=== PATIENT | male | born 1995 | race Caucasian/White ===

== ENCOUNTER 2022-08-09 18:04 | Emergency (ER) | payer SELFPAY ==
--- NOTE | 2022-08-09 18:55 | XRAY Report ---
PROCEDURE: Chest 1 View X-Ray INDICATIONS: Chest Pain TECHNIQUE: One view of the chest was acquired. COMPARISON: None. FINDINGS: Surgical changes and devices: None. Lungs and pleura: No pleural effusions or pneumothorax. Lungs are clear. Mediastinum: Mediastinal contours appear normal. Heart size is normal. Bones and chest wall: No suspicious bony lesions. Overlying soft tissues appear unremarkable. IMPRESSION: Portable chest within normal limits for age. Reviewed by: Chas Hyatt MD on 08/09/2022 5:54 PM AKJULIANE Approved by: Chas Hyatt MD on 08/09/2022 5:54 PM WAJULIANE Station ID: [id number]
[2022-08-09 18:56] LABS: BASOPHILS % (AUTO) 0.4 %; EOSINOPHILS # (AUTO) 0.1 10^3/uL (0.0-0.7); EOSINOPHILS % (AUTO) 1.5 %; HCT - HEMATOCRIT 43.2 % (42.0-52.0); HGB - HEMOGLOBIN 13.9 g/dL (14.0-18.0); LYMPHOCYTES # (AUTO) 2.7 10^3/uL (1.5-3.5); LYMPHOCYTES % (AUTO) 39.7 %; MEAN CORPUSCULAR HEMOGLOBIN 29.4 pg (27.0-31.0); MEAN CORPUSCULAR HGB CONC 32.2 g/dL (32.0-36.0); MEAN CORPUSCULAR VOLUME 91.5 fL (80.0-94.0); MEAN PLATELET VOLUME 8.9 fL (7.4-11.4); MONOCYTES # (AUTO) 0.7 10^3/uL (0.0-1.0); NEUTROPHILS # (AUTO) 3.2 10^3/uL (1.5-6.6); NEUTROPHILS % (AUTO) 48.1 %; PLT - PLATELET COUNT 301 10^3/uL (130-450); RED BLOOD COUNT 4.72 10^6/uL (4.70-6.10); RED CELL DISTRIBUTION WIDTH 12.1 % (12.0-15.0); WHITE BLOOD COUNT 6.7 x10^3/uL (4.8-10.8)
[2022-08-09 19:10] LABS: ALBUMIN 4.5 g/dL (3.2-5.5); ALBUMIN/GLOBULIN RATIO 1.6 (1.0-2.2); BILIRUBIN,TOTAL 0.7 mg/dL (0.2-1.0); POTASSIUM 3.9 mmol/L (3.5-5.0); TOTAL PROTEIN 7.4 g/dL (6.7-8.2)
[2022-08-09] MEDS ORDERED: METOPROLOL TARTRATE 50 MG TABLET PO STA (19:54)
--- NOTE | 2022-08-09 19:59 | ED Physician Documentation ---
History of Present Illness - Stated complaint Stated Complaint: IRREGULAR HEARTBEAT - Chief complaint Chief Complaint: Cardiac - History obtained from History obtained from: Patient - History of Present Illness Timing: Today Pain level max: 0 Pain level now: 0 - Additonal information Additional information: 27-year-old male presents to the emergency department stating that his heart has "felt funny" for several years but seems to be becoming more frequent. He states he is unsure how to describe it. Does not feel like it is skipping a beat. Does not feel like it races. No chest pain. No shortness of breath. No fevers. No chills. Denies any drug use. No caffeine or energy drinks. He states it is worse when lying on the right side. Review of Systems Constitutional: denies: Fever, Chills GI: denies: Vomiting, Diarrhea Skin: denies: Rash Musculoskeletal: denies: Neck pain, Back pain Neurologic: denies: Headache PD PAST MEDICAL HISTORY - Past Medical History Past Medical History: No - Past Surgical History Past Surgical History: No - Present Medications Home Medications: Ambulatory Orders Medication Instructions Recorded Confirmed Metoprolol Succinate [Toprol Xl] 25 mg PO DAILY #30 tablet 08/09/22 - Allergies Allergies/Adverse Reactions: Allergies Allergy/AdvReac Type Severity Reaction Status Date / Time No Known Drug Allergies Allergy Verified 08/09/22 18:25 PD ED PE NORMAL - Vitals Vital signs reviewed: Yes - General General: Alert and oriented X 3, No acute distress - HEENT HEENT: PERRL, Moist mucous membranes - Neck Neck: Supple, no meningeal sign - Cardiac Cardiac: RRR, Strong equal pulses - Respiratory Respiratory: No respiratory distress, Clear bilaterally - Abdomen Abdomen: Soft, Non tender, Non distended - Derm Derm: Warm and dry - Extremities Extremities: No edema, No calf tenderness / cord - Neuro Neuro: Alert and oriented X 3 - Psych Psych: Normal mood, Normal affect Results - Vitals Vitals: Vital Signs - 24 hr 08/09/22 08/09/22 08/09/22 18:23 18:58 19:29 Temperature 37.1 C Heart Rate 70 82 72 Respiratory 16 18 18 Rate Blood Pressure 115/65 131/79 H 120/77 O2 Saturation 98 100 99 08/09/22 08/09/22 20:06 20:33 Temperature Heart Rate 73 70 Respiratory 18 Rate Blood Pressure 125/69 125/69 O2 Saturation 100 Oxygen O2 Source Room air - EKG (time done) 1828 EKG releavant findings:: EKG personally interpreted by author of this note. Relevant findings are: Rate: Rate (enter#) (80) Rhythm: NSR [place]: Normal Intervals: RBBB Ischemia: Normal ST segments - Labs Labs: Laboratory Tests 08/09/22 08/09/22 08/09/22 18:51 18:51 18:51 WBC 6.7 RBC 4.72 Hgb 13.9 L Hct 43.2 MCV 91.5 MCH 29.4 MCHC 32.2 RDW 12.1 Plt Count 301 MPV 8.9 Neut # (Auto) 3.2 Lymph # (Auto) 2.7 [place] # (Auto) 0.7 Eos # (Auto) 0.1 Baso # (Auto) 0.0 Absolute Nucleated RBC 0.00 Nucleated RBC % 0.0 Sodium 140 Potassium 3.9 Chloride 103 Carbon Dioxide 28 Anion Gap 9.0 BUN 20 Creatinine 1.0 Estimated GFR (MDRD) 90 Glucose 91 Calcium 9.0 Total Bilirubin 0.7 AST 19 ALT 15 Alkaline Phosphatase 37 L Troponin I High Sens 2.4 Total Protein 7.4 Albumin 4.5 Globulin 2.9 Albumin/Globulin Ratio 1.6 Lipase 33 - Rads (name of study) cxr Relevant Findings:: Final report received, See rad report PD Medical Decision Making - ED course Complexity details: reviewed results, re-evaluated patient, considered differential (No ST elevation [place], no aortic dissection, no PE, no tension pneumothorax, no aortic aneurysm), d/w patient ED course: 27-year-old male with short episodes of PACs. He feels palpitations when this occurs on telemetry monitoring. No acute findings on CBC, chemistry, EKG or high-sensitivity troponin. Given a small dose of metoprolol here and symptoms resolved. We will have him follow-up with his PCP for a Zio patch/Holter monitor and echocardiogram. We will start him on a low-dose metoprolol. Patient is well-appearing, nontoxic. Afebrile. Otherwise asymptomatic here. Patient counseled regarding signs and symptoms for which I believe and urgent re-evaluation would be necessary. Patient with good understanding of and agreement to plan and is comfortable going home at this time This document was made in part using voice recognition software. While efforts are made to proofread this document, sound alike and grammatical errors may occur. Departure - Departure Disposition: 01 Home, Self Care Clinical Impression: Premature atrial contractions, Palpitations Condition: Good Instructions: ED Palpitations Follow-Up: [facility]Provider [facility]] [facility] [Provider Group] [facility] [Provider Group] Prescriptions: Metoprolol Succinate [Toprol Xl] 25 mg PO DAILY #30 tablet Comments: Please follow-up with the primary care clinic or walk-in clinic. You will likely need a Zio patch or Holter monitor. You also benefit from a cardiac echo. We will start you on a low-dose of metoprolol. This should help to co ntrol the palpitations you are feeling. You appear to be having premature atrial contractions on the gambling monitor tonight. Please return if you worsen [facility] Discharge Date/Time: 08/09/22 20:41
[2022-08-09 20:09] VITALS: BP 125/69
== END 2022-08-09 20:41 | disposition home or self-care (01) ==
LOC: ED 18:04
DX: I49.1 Atrial premature depolarization (principal); R00.2 Palpitations
CPT/HCPCS: 36415; 71045; 80053; 83690; 84484; 85025; 93005; 99284; A9270

== ENCOUNTER 2022-09-04 11:58 | Outpatient (CLI) | payer OTHER | END 2022-09-04 11:59 | disposition home or self-care (01) | LOC: MAC.MOP 11:58 | PROVIDERS: ATTEND Physician Assistant | DX: R06.09 Other forms of dyspnea (principal); R00.2 Palpitations | CPT/HCPCS: 93242 ==

== ENCOUNTER 2022-09-23 10:30 | Outpatient (CLI) | payer OTHER | END 2022-09-23 23:59 | disposition home or self-care (01) | LOC: MAC.INF 10:30 | PROVIDERS: ATTEND Physician Assistant | DX: I47.1 Supraventricular tachycardia (principal); I49.1 Atrial premature depolarization; I49.3 Ventricular premature depolarization | CPT/HCPCS: 93244 ==

== ENCOUNTER 2022-10-14 06:54 | Outpatient (CLI) | payer OTHER | END 2022-10-14 06:55 | disposition home or self-care (01) | LOC: DI 06:54 | PROVIDERS: ATTEND Physician Assistant | DX: I34.0 Nonrheumatic mitral (valve) insufficiency (principal); R06.09 Other forms of dyspnea; R00.2 Palpitations | CPT/HCPCS: 93306 ==

== ENCOUNTER 2023-02-02 18:12 | Emergency (ER) | payer MEDICAID, OTHER ==
[2023-02-02 18:32] VITALS: O2SAT 100
[2023-02-02 18:45] LABS: BASOPHILS % (AUTO) 0.7 %; EOSINOPHILS # (AUTO) 0.1 10^3/uL (0.0-0.7); EOSINOPHILS % (AUTO) 1.6 %; HCT - HEMATOCRIT 45.9 % (42.0-52.0); LYMPHOCYTES # (AUTO) 2.6 10^3/uL (1.5-3.5); MEAN CORPUSCULAR HEMOGLOBIN 29.4 pg (27.0-31.0); MEAN CORPUSCULAR HGB CONC 32.7 g/dL (32.0-36.0); MEAN CORPUSCULAR VOLUME 89.8 fL (80.0-94.0); MEAN PLATELET VOLUME 8.7 fL (7.4-11.4); MONOCYTES # (AUTO) 0.7 10^3/uL (0.0-1.0); MONOCYTES % (AUTO) 11.6 %; NEUTROPHILS # (AUTO) 2.6 10^3/uL (1.5-6.6); NEUTROPHILS % (AUTO) 42.9 %; PLT - PLATELET COUNT 310 10^3/uL (130-450); RED BLOOD COUNT 5.11 10^6/uL (4.70-6.10); RED CELL DISTRIBUTION WIDTH 11.9 % (12.0-15.0); WHITE BLOOD COUNT 6.1 x10^3/uL (4.8-10.8)
[2023-02-02 18:59] LABS: ALBUMIN 4.9 g/dL (3.2-5.5); ALBUMIN/GLOBULIN RATIO 1.8 (1.0-2.2); BILIRUBIN,TOTAL 0.4 mg/dL (0.2-1.0); CALCIUM 9.7 mg/dL (8.5-10.3); POTASSIUM 3.8 mmol/L (3.5-4.5); TOTAL PROTEIN 7.6 g/dL (6.4-8.9)
[2023-02-02 19:08] LABS: TROPONIN I HIGH SENSITIVITY 2.3 ng/L (2.3-19.7)
--- NOTE | 2023-02-02 19:20 | XRAY Report ---
PROCEDURE: Chest 1 View X-Ray INDICATIONS: Chest pain TECHNIQUE: One view of the chest was acquired. COMPARISON: CXR 08/09/2022. FINDINGS: Surgical changes and devices: None. Lungs and pleura: No pleural effusions or pneumothorax. Lungs are clear. Mediastinum: Mediastinal contours appear normal. Heart size is normal. Bones and chest wall: No suspicious bony lesions. Overlying soft tissues appear unremarkable. IMPRESSION: No acute cardiopulmonary process. Reviewed by: Dimas Torres MD on 02/02/2023 7:18 PM PDT Approved by: Dimas Torres MD on 02/02/2023 7:18 PM PDT Station ID: [id number]
[2023-02-02 19:35] VITALS: BP 142/79
--- NOTE | 2023-02-02 19:55 | ED Physician Documentation ---
History of Present Illness - Stated complaint Stated Complaint: SOA,CHEST PX - Chief complaint Chief Complaint: Cardiac - History obtained from History obtained from: Patient - Additonal information Additional information: This is a 27-year-old male who presents with shortness of breath and heart palpitations. Symptoms primarily occur with activity though he has some at rest. He has had the symptoms for several months and has been seen here in the past for them but he feels like they are getting worse. He notices particularly when he was running on the treadmill that he had some sort of "pulling" sensation in the upper abdomen and then it felt like he had a heart palpitation or irregular rhythm and then he had shortness of breath. It is difficult for the patient to explain the symptoms but he is very distressed by what he is feeling. He states that though he has had several work-ups in the past he still feels like something is wrong. He has had an echocardiogram in the past in October , and he has had several EKGs. 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 He does not smoke, does not vape or use any other inhalant he does not use caffeine any longer, he cut it out after prior episodes of heart palpitations. He denies any drug use. He is very active, frequently exercising and working out. He does not have any family history of early heart disease. He does not feel dizzy with activity. He has no history of DVT or PE, no lower extremity swelling or pain, no recent prolonged immobility. He has seen his PCP for this and has been seen in the ER for this without relief in his symptoms. He is not currently taking any medication for this issue. Review of Systems Constitutional: reports: Reviewed and negative Eyes: reports: Reviewed and negative Ears: reports: Reviewed and negative Nose: reports: Reviewed and negative Throat: reports: Reviewed and negative Cardiac: reports: Palpitations. denies: Chest pain / pressure, Pedal edema, Calf pain Respiratory: reports: Dyspnea. denies: Cough, Hemoptysis, Wheezing GI: reports: Abdominal Pain. denies: Abdominal Swelling, Nausea, Vomiting, Constipation, Diarrhea, Hematemesis, Bloody / black stool : reports: Reviewed and negative Skin: reports: Reviewed and negative Musculoskeletal: reports: Reviewed and negative Neurologic: reports: Reviewed and negative PD PAST MEDICAL HISTORY - Past Medical History Past Medical History: No - Past Surgical History Past Surgical History: No - Present Medications Home Medications: Ambulatory Orders Medication Instructions Recorded Confirmed Omeprazole Magnesium 20 mg PO DAILY 02/02/23 02/02/23 - Allergies Allergies/Adverse Reactions: Allergies Allergy/AdvReac Type Severity Reaction Status Date / Time No Known Drug Allergies Allergy Verified 02/02/23 18:25 PD ED PE NORMAL - Vitals Vital signs reviewed: Yes - General General: Alert and oriented X 3, No acute distress, Well developed/nourished - HEENT HEENT: Atraumatic, Moist mucous membranes - Neck Neck: Supple, no meningeal sign, No JVD - Cardiac Cardiac: RRR, No murmur, No gallop, No rub, Strong equal pulses - Respiratory Respiratory: No respiratory distress, Clear bilaterally - Abdomen Abdomen: Normal bowel sounds, Soft, Non tender, Non distended - Derm Derm: Normal color, Warm and dry, No rash - Extremities Extremities: No deformity, No tenderness to palpate, Normal ROM s pain, No edema, No calf tenderness / cord - Neuro Neuro: Alert and oriented X 3 Eye Opening: Spontaneous Motor: Obeys Commands Verbal: Oriented GCS Score: 15 - Psych Psych: Normal mood, Normal affect Results - Vitals Vitals: Vital Signs - 24 hr 02/02/23 02/02/23 18:23 19:26 Temperature 36.4 C L Heart Rate 85 70 Respiratory 16 18 Rate Blood Pressure 134/65 H 142/79 H O2 Saturation 100 100 Oxygen O2 Source Room air - EKG (time done) No standard instances EKG releavant findings:: EKG personally interpreted by author of this note. Relevant findings are: Rate: Rate (enter#) (72) Rhythm: NSR [place]: Normal Intervals: RBBB QRS: Normal Ischemia: Normal ST segments Compare to prior EKG: Unchanged from prior EKG Computer interpretation: Agree with computer - Labs Labs: Laboratory Tests 02/02/23 02/02/23 18:40 18:40 WBC 6.1 RBC 5.11 Hgb 15.0 Hct 45.9 MCV 89.8 MCH 29.4 MCHC 32.7 RDW 11.9 L Plt Count 310 MPV 8.7 Neut # (Auto) 2.6 Lymph # (Auto) 2.6 [place] # (Auto) 0.7 Eos # (Auto) 0.1 Baso # (Auto) 0.0 Absolute Nucleated RBC 0.00 Nucleated RBC % 0.0 Sodium 139 Potassium 3.8 Chloride 105 Carbon Dioxide 29 Anion Gap 5.0 L BUN 16 Creatinine 1.0 Estimated GFR (MDRD) 90 Glucose 70 L Calcium 9.7 Total Bilirubin 0.4 AST 19 ALT 14 Alkaline Phosphatase 59 Troponin I High Sens 2.3 Total Protein 7.6 Albumin 4.9 Globulin 2.7 Albumin/Globulin Ratio 1.8 Lipase 19 PD Medical Decision Making - ED course Complexity details: reviewed old records, reviewed results, re-evaluated patient, considered differential, d/w patient ED course: 27-year-old male presented with heart palpitations and shortness of breath as described in HPI. These have been longstanding symptoms but worsening recently and the patient has had several work-ups in the past. On arrival here, the patient is in no acute distress with stable vital signs and acting 100% on room air. An EKG was obtained and shows normal sinus rhythm with a right bundle branch block which is unchanged from prior. We obtained labs to evaluate for possible ACS, infection, anemia or electrolyte disturbances causing symptoms and these were reassuring, troponin is negative, remainder of his labs are stable. His chest x-ray is also stable and his lungs are clear to auscultation. PERC score is negative, low suspicion for PE. His heart score is also low.He had an echocardiogram in October which was reviewed and stable. It is unclear what is causing his symptoms something but at this time it does not appear to be an emergent cause of his symptoms. I have recommended that he follow-up with PCP and likely would benefit from referral to cocoa powder mixer operator, possible stress test though he has no risk factors for early heart disease, and may benefit from a Zio patch. He is encouraged to continue to avoid caffeine, and I discussed return precautions if new or worsening symptoms. Departure - Departure Disposition: 01 Home, Self Care Clinical Impression: Heart palpitations, Right bundle branch block Condition: Good Instructions: ED Chest Pain NonCardiac Comments: Your work-up today is stable, your labs are all reassuring, your cardiac enzymes are normal. Your EKG shows a right bundle branch block seen previously and is not new. Your chest x-ray is normal. I am unsure what is causing your symptoms of shortness of breath but it does not appear to be an emergent cause at this time. I recommend you follow-up with your primary doctor in a day may refer you to cardiology for outpatient stress test and/or Zio patch to monitor your heart rhythm. In the meantime, continue to avoid caffeine and other stimulants. Forms: PCP List Discharge Date/Time: 02/02/23 20:10
== END 2023-02-02 20:10 | disposition home or self-care (01) ==
LOC: ED 18:12
DX: I45.10 Unspecified right bundle-branch block (principal)
CPT/HCPCS: 36415; 80053; 83690; 84484; 85025; 93005; 99283; 99284

== ENCOUNTER 2023-03-03 21:33 | Outpatient (CLI) | payer MEDICAID ==
--- NOTE | 2023-03-04 13:41 | Ultrasound Report ---
PROCEDURE: Abdomen Limited INDICATIONS: EPIGASTRIC ABD PAIN TECHNIQUE: Real-time focused scanning was performed of the abdomen, with image documentation. COMPARISONS: None. FINDINGS: Liver: Liver is normal in size and homogeneous in echotexture. Gallbladder: Unremarkable. Biliary ducts: Intrahepatic bile ducts are non-dilated. Extrahepatic bile duct caliber measures 3.3 mm. Normal is 6-7 mm or less in diameter, or 10 mm or less post-cholecystectomy. Pancreas: Visualized portions of the pancreas are sonographically normal. Right kidney: Normal in size and echotexture. Right kidney measures 15.7 cm long. No hydronephrosis or nephrolithiasis. No solid masses. No complex renal cystic lesions which require follow-up. Aorta: Visualized aorta is normal in caliber at less than 3 cm. IVC: Intrahepatic inferior vena cava is patent. Miscellaneous: No free abdominal fluid. IMPRESSION: Unremarkable abdominal ultrasound. Reviewed by: Conrad Murillo MD on 03/04/2023 1:39 PM PST Approved by: Conrad Murillo MD on 03/04/2023 1:39 PM PST Station ID: [id number]
== END 2023-03-03 21:34 | disposition home or self-care (01) ==
LOC: DI 21:33
PROVIDERS: ATTEND Physician Assistant
DX: R10.13 Epigastric pain (principal); R10.11 Right upper quadrant pain